=== PATIENT | male | born 2000 | race Caucasian/White ===

== ENCOUNTER 2022-02-04 12:12 | Emergency (ER) | payer BC ==
[~2022-02-04] VITALS: Ht 180.3 cm; Wt 81.6 kg
[2022-02-04 12:15] VITALS: BP_SYST 136
--- NOTE | 2022-02-04 12:18 | NUR ---
Patient to ER bed 01 to gown for evaluation. Side rails up.
--- NOTE | 2022-02-04 12:54 | NUR ---
ER DR. PAGAN AT THE BEDSIDE EXAMINING PT
--- NOTE | 2022-02-04 13:30 | NUR ---
awaiting ct results.
[2022-02-04] MEDS ORDERED: NAPR-690 PO (13:59)
--- NOTE | 2022-02-04 14:15 | NUR ---
Patient given written and verbal discharge instructions and verbalizes understanding. ER MD discussed with patient the results and treatment provided. Patient in stable condition. ID arm band removed. Rx of naproxyn given. Patient educated on pain management and to follow up with PMD. Pain Scale 1/10. Opportunity for questions provided and answered. Medication side effect fact sheet provided.
[2022-02-04 14:30] VITALS: BP_SYST 128
== END 2022-02-04 14:15 | disposition home or self-care (01) ==
LOC: SED 12:12
DX: S30.0XXA Contusion of lower back and pelvis, initial encounter (principal); V00.311A Fall from snowboard, initial encounter; Y93.23 Activity, snow (alpine) (downhill) skiing, snowboarding, sledding, tobogganing and snow tubing; Y92.89 Other specified places as the place of occurrence of the external cause; Y99.8 Other external cause status
CPT/HCPCS: 72131; 72192-TC; 76376; 99284